=== PATIENT | male | born 1990 | race African-American/Black ===

== ENCOUNTER 2025-04-12 15:09 | Outpatient (REF) | payer MEDICAID, OTHER, SELFPAY ==
--- OUTSIDE RECORDS SUMMARY | 2025-04-12 15:43 | XMS_ITS | Encounter Summary ---
Author Organization [employer] Address [address] [place] [address] Care Team Providers Care Knife Changer Name Role Phone Name, Chapito DUKES Primary Care Provider [phone] Encounter Details Date Type Department Care Team (Latest Contact Info) Description 04/12/2025 Travel Social History Tobacco Use Types Packs/Day Years Used Date Smoking Tobacco: Never Smokeless Tobacco: Never Alcohol Use Standard Drinks/Week Comments Not Currently 0 (1 standard drink = 0.6 oz pur e alcohol) social drinker Alcohol Answer Date Recorded How often do you have a drink containing alcohol ? 2 04/12/2025 How many drinks containing a lcohol do you have on a typical day when you are drinking? 0 04/12/2025 Frequency of Binge Drinking Not on file 01/2025 Depression Answer Date Recorded Patient Health Questionnaire-9 Score 3 04/12/2025 Patient Health Questionnaire-9 Score 3 04/12/2025 Last PHQ-9: Questionnaire Data Not on file 0 04/12/2025 Housing Stability Answer Date Recorded What is your housing situation today? I have [employer]ienna watts 04/12/[address] you li ve. Do you have problems with any of the following? Pests such as bugs, ants, or mice 04/12/2025 Food Insecurity Answer Date Recorded Within the past 12 months, y ou worried that your food would run out before you got money to buy more: Sometimes True 2024 Within the past 12 months,th e food you bought just didn't last and you didn't have enough money to get more: Sometimes True 04/12/2025 Transportation Answer Date Recorded In the past 12 months, has l ack of transportation kept you from medical appts, meetings, work or from getting things needed for daily living? No 04/12/2025 Utilities Answer Date Recorded In the past 12 months, has t he [employer], [employer] threatened to shut off services in your home? No 04/12/2025 Depression Answer Date Recorded Patient Health Questionnaire-2 Score 0 04/12/2025 Internet Access Answer Date Recorded Internet Access Q1 Yes 04/12/2025 Internet Access Q2 Not on file 04/12/2025 Sex and Gender Information Value Date Recorded Sex Assigned at Male 12/07/2024 3:47 PM EDT Legal Sex Male 12:32 PM EST Gender Identity Male 12/07/2024 3:47 PM EDT Sexual Orientation Choose not to disclose 2024 3:47 PM EDT documented as of this encounter Functional Status * Over the past 2 weeks, how often have you been bothered by any of the following problems? Question Answer Date of Assessment Author Patient Health Questionnaire -2 Score 0 04/12/2025 3:08 PM LAKET Chivo Hassan MA * Little interest or pleasure in doing things Answer Date of Assessment Author Not at all 04/12/2025 3:08 PM Jody Nance MA * Feeling down, depressed, or hopeless Answer Date of Assessment Author Not at all 04/12/2025 3:08 PM LAKET Jody Hassan MA * Trouble falling or staying asleep, or sleeping too much Answer Date of Assessment Author Not at all 04/12/2025 3:08 PM Jody Nance MA * Feeling tired or having little energy Answer Date of Assessment Author Not at all 04/12/2025 3:08 PM Jody Nance MA * Poor appetite or overeating Answer Date of Assessment Author Nearly every day 04/12/2025 3:08 PM Jody Nance MA * Feeling bad about yourself - or that you are a failure or have let yourself or your family down Answer Date of Assessment Author Not at all 04/12/2025 3:08 PM Jody Nance MA * Trouble concentrating on things, such as reading the newspaper or watching television Answer Date of Assessment Author Not at all 04/12/2025 3:08 PM Jody Nance MA * Moving or speaking so slowly that other people could have noticed? Or the opposite - being so fidgety or restless that you have been moving around a lot more than usual. Answer Date of Assessment Author Not at all 04/12/2025 3:08 PM LAKET Jody Hassan MA * Thoughts that you would be better off or hurting yourself in some way Answer Date of Assessment Author Not at all 04/12/2025 3:08 PM LAKET Jody Hassan MA * Patient Health Questionnaire-9 Score Answer Date of Assessment Author 3 04/12/2025 3:08 PM LAKET Jody Hassan MA * How difficult have these problems made it for you to do your work, take care of things at home, or get along with other people? Answer Date of Assessment Author Not difficult at all 04/12/2025 3:08 PM LAKET Jody Bailey MA * Over the last 2 weeks, how often have you been bothered by any of the following problems? Question Answer Date of Assessment Author Feeling nervous, anxious, or on edge 0 04/12/2025 3:09 PM LAKET Chivo Hassan MA Not being able to stop or control worrying 0 04/12/2025 3:09 PM Chivo Nance MA Worrying too much about different things 0 04/12/2025 3:09 PM LAKET Chivo Hassan MA Trouble relaxing 0 04/12/2025 3:09 PM EDT Jody Bonner MA Being so restless that it is hard to sit still 0 04/12/2025 3:09 PM Chivo Nnace MA Becoming easily annoyed or irritable 0 04/12/2025 3:09 PM Chivo Nance MA Feeling afraid as if somethi ng awful might happen 0 04/12/2025 3:09 PM Chivo Nance MA ROD-7 Total Score 0 04/12/2025 3:09 PM Jody Nance MA documented as of this encounter Plan of Treatment Not on file documented as of this encounter Visit Diagnoses Not on filedocumented in this encounter Additional Health Concerns Assessment Noted Time PHQ-9 Depression Total Score: 3 04/12/20 3:08 PM EDT documented as of this encounter Care Teams Knife Changer Relationship Specialty Start Date End Date Name, MD [address] [place] [address] PCP - General Internal Medicine 12/08/24 documented as of this encounter
[2025-04-12 17:49] LABS: CT PCR Urine NOT DETECTED (Not Detect.); NG PCR Urine NOT DETECTED (Not Detect.)
[2025-04-13 08:05] LABS: HBS Num1 0.70 mIU/mL (0-7.99); HBsAGNum1 0.39 S/CO (0.00-0.99); HIV Num 1 0.07 S/CO (0.00-0.99); Hepatitis B Surface Antigen Negative (Negative); ~HepC Num1 0.25 S/CO (0.00-0.79); ~Hepatitis B Surface Antibody NONREACTIVE (Nonreactive); ~Hepatitis C Antibody Nonreactive (Nonreactive)
== END 2025-04-12 15:10 | disposition home or self-care (01) ==
LOC: HO.HHCL 15:09
PROVIDERS: PCP Internal Medicine Geriatric Medicine; Visit Provider Internal Medicine Geriatric Medicine
DX: Z01.84 Encounter for antibody response examination (principal); Z11.4 Encounter for screening for human immunodeficiency virus [HIV]; Z11.59 Encounter for screening for other viral diseases; Z11.3 Encounter for screening for infections with a predominantly sexual mode of transmission; Z11.8 Encounter for screening for other infectious and parasitic diseases
CPT/HCPCS: 36415; 86592; 86706; 86803; 87340; 87389; 87491; 87591